=== PATIENT | female | born 1960 | race American Indian/Alaskan Native ===

== ENCOUNTER 2017-03-04 07:47 | Emergency (ER) | payer BC ==
[2017-03-04 08:00] VITALS: BP 174/93
[2017-03-04] MEDS ORDERED: TORADOL IM ONE (08:29)
[2017-03-04] MEDS ORDERED: NORCO 7.5/325 PO ONE (08:29)
[2017-03-04] MEDS ORDERED: FLEXERIL PO ONE (08:29)
--- NOTE | 2017-03-04 09:04 | XRay Report ---
LEFT KNEE RADIOGRAPHS INDICATION: Fall. COMPARISON: None similar. FINDINGS: AP, lateral and oblique left knee radiographs demonstrate intact articulation. Mild degenerative spurring. Superior and inferior patellar enthesophytes as well. No suprapatellar effusion. CONCLUSION: Left knee osteoarthrosis without acute radiographic abnormality. Thank you for the opportunity to participate in this patient's care.
--- NOTE | 2017-03-04 09:06 | XRay Report ---
LEFT FEMUR RADIOGRAPHS INDICATION: Fall. COMPARISON: None similar at this institution. FINDINGS: AP and lateral left femur radiographs demonstrate intact bones, included joints and soft tissues. Left knee osteoarthritic changes. Left acetabular degenerative spurring also noted. Atherosclerotic vascular calcifications. CONCLUSION: No acute left femur radiographic abnormality with few degenerative changes noted, as above. Thank you for the opportunity to participate in this patient's care.
--- NOTE | 2017-03-04 12:28 | Emergency Department Report ---
ED Fall HPI - General Chief Complaint: Extremity Injury, Lower Stated Complaint: LEFT KNEE PAIN Source: patient Mode of arrival: Ambulatory Limitations: No Limitations - History of Present Illness Initial Comments: 57 year old female presents to ED after mechanical fall today. patient states she fell and hit her left knee and left upper leg. patient is ambulatory. patient denies LOC or trauma to head/neck. patient is stable, neurologically intact and in no acute distress. MD Complaint: fall -: Sudden Fall From: standing When Fall Occurred: just prior to arrival Fall Witnessed: yes, by family Place Fall Occurred: home Loss of Consciousness: none Prolonged Down Time?: no Symptoms Prior to Fall: none Location: other (left upper leg and left knee) Location - Extremities: Left: Thigh, Knee Severity: mild Quality: aching Context: tripped/slipped Associated Symptoms: denies. denies: headache, neck pain, numbness, weakness, chest paint, shortness of breath, unable to walk, lightheaded, vertigo, confusion - Related Data Previous Rx's Medication Instructions Recorded Last Taken Type Ketorolac [Toradol] 10 mg PO Q6H PRN #20 tablet 03/04/17 Unknown Rx methOCARBAMOL [Robaxin TAB] 500 mg PO BID #20 tab 03/04/17 Unknown Rx Allergies Allergy/AdvReac Type Severity Reaction Status Date / Time No Known Allergies Allergy Verified 03/04/17 07:55 ED Review of Systems ROS: Stated complaint: LEFT KNEE PAIN Other details as noted in HPI Constitutional: denies: chills, fever Eyes: denies: eye pain, eye discharge, vision change ENT: denies: ear pain, throat pain Respiratory: denies: cough, shortness of breath, wheezing Cardiovascular: denies: chest pain, palpitations Endocrine: no symptoms reported Gastrointestinal: denies: abdominal pain, nausea, diarrhea Genitourinary: denies: urgency, dysuria, discharge Musculoskeletal: arthralgia. denies: back pain, joint swelling (left thigh and knee pain ) Skin: denies: rash, lesions Neurological: denies: headache, weakness, paresthesias Psychiatric: denies: anxiety, depression Hematological/Lymphatic: denies: easy bleeding, easy bruising ED Past Medical Hx - Past Medical History Previous Medical History?: No - Surgical History Past Surgical History?: No - Social History Smoking Status: Never Smoker Substance Use Type: None - Medications Home Medications: Home Medications Medication Instructions Recorded Confirmed Last Taken Type Ketorolac [Toradol] 10 mg PO Q6H PRN #20 tablet 03/04/17 Unknown Rx methOCARBAMOL [Robaxin TAB] 500 mg PO BID #20 tab 03/04/17 Unknown Rx ED Physical Exam - General Limitations: No Limitations General appearance: alert, in no apparent distress - Head Head exam: Present: atraumatic, normocephalic - Eye Eye exam: Present: normal appearance - ENT ENT exam: Present: mucous membranes moist - Neck Neck exam: Present: normal inspection - Respiratory Respiratory exam: Present: normal lung sounds bilaterally. Absent: respiratory distress - Cardiovascular Cardiovascular Exam: Present: regular rate, normal rhythm. Absent: systolic murmur, diastolic murmur, rubs, gallop - GI/Abdominal GI/Abdominal exam: Present: soft, normal bowel sounds - Extremities Exam Extremities exam: Present: normal inspection, full ROM, tenderness (left knee and left thigh) - Back Exam Back exam: Present: normal inspection, full ROM. Absent: tenderness - Neurological Exam Neurological exam: Present: alert, oriented X3, normal gait - Psychiatric Psychiatric exam: Present: normal affect, normal mood - Skin Skin exam: Present: warm, dry, intact, normal color. Absent: rash ED Course Vital Signs 03/04/17 07:55 Temperature 98.0 F Pulse Rate 72 Respiratory 18 Rate Blood Pressure 174/93 O2 Sat by Pulse 100 Oximetry ED Medical Decision Making - Radiology Data Radiology results: report reviewed xr left femur No acute left femur radiographic abnormality with few degenerative changes. XR left knee Left knee osteoarthrosis without acute radiographic abnormality. - Medical Decision Making 57 year old female presents to ED with left thigh pain and left knee pain. patient is stable, neurologically intact and in no acute distress. patient has negative imaging studies and decreased pain after medication in ED. Critical care attestation.: If time is entered above; I have spent that time in minutes in the direct care of this critically ill patient, excluding procedure time. ED Disposition Clinical Impression: Fall at home Qualifiers: Encounter type: initial encounter Qualified Code(s): W19.XXXA - Unspecified fall, initial encounter Disposition: - TO HOME OR SELFCARE Is pt being admited?: No Does the pt Need Aspirin: No Condition: Stable Instructions: Fall Prevention (ED) Prescriptions: Ketorolac [Toradol] 10 mg PO Q6H PRN #20 tablet PRN Reason: Pain methOCARBAMOL [Robaxin TAB] 500 mg PO BID #20 tab Referrals: PRIMARY CARE, [Primary Care Provider] - 3-5 Days
== END 2017-03-04 10:35 | disposition home or self-care (01) ==
LOC: ED 07:47
DX: S89.92XA Unspecified injury of left lower leg, initial encounter (principal); W18.30XA Fall on same level, unspecified, initial encounter; Y93.9 Activity, unspecified; Y92.9 Unspecified place or not applicable; Y99.9 Unspecified external cause status
CPT/HCPCS: 73552; 73562; 96372; 99283; J1885